=== PATIENT | female | born 1995 | race Caucasian/White ===

== ENCOUNTER 2016-06-05 01:39 | Emergency (ER) | payer MEDICAID ==
[~2016-06-05] VITALS: Ht 165.1 cm; Wt 80.0 kg
[~2016-06-05 01:39] MED LIST: ALBU1AER INH; DOXY100T PO; MMW SWISH-SWAL; PRED20 PO
[2016-06-05 01:41] VITALS: BP 143/82; PULSE 76; RESP 16; TEMP 97.7; O2SAT 99
[2016-06-05 02:46] VITALS: BP 122/77; PULSE 62; RESP 18; O2SAT 98
[2016-06-05] MEDS ORDERED: ZOFR8TAB PO (03:00)
[2016-06-05] MEDS ORDERED: SODIUM CHLOR 0.9% 1000 ML INJ 1,000 ML IV SCH (03:26)
--- NOTE | 2016-06-05 03:28 | PD ---
HPI . Abdominal pain Chief Complaint: Abdominal Pain Time Seen by Provider: 03:20 Travel History International Travel<30 days: No Contact w/Intl Traveler<30days: No Traveled to known affect area: No History of Present Illness HPI Patient presents with right lower quadrant abdominal pain. She states that she' s had the abdominal pain for about a week. It has waxed and waned. She describes cramping. It is associated with nausea. She denies known fever. She denies urinary tract symptoms. She denies any female organs symptoms such as abnormal bleeding, discharge or dyspareunia. PFSH Past Medical History Asthma: No Blood Disorders: No Anxiety: Yes (PT DENIES 12/26/2014) Depression: Yes (PT. DENIES 12/26/14) Heart Rhythm Problems: No Cancer: No Cardiovascular Problems: No High Cholesterol: No Chemotherapy: No Chest Pain: Yes Congestive Heart Failure: No COPD: No Diabetes: No Diminished Hearing: No Endocrine: No Gastrointestinal Disorders: Yes (C-DIFF: 2013, GASTROPARESIS) Genitourinary: No Immune Disorder: No Musculoskeletal: No Neurologic: No Psychiatric: Yes Reproductive: No Respiratory: No Immunizations Current: Yes Radiation Therapy: No Sleep Apnea: No Thyroid Disease: No Ulcer: Yes Tetanus Vaccination: < 5 Years Influenza Vaccination: No ?: Not LMP: 05/18/2016 : 1 Para: 1 Miscarriage: 1 Ovarian Cysts: Yes Past Surgical History Cholecystectomy: Yes (05/2015) Oral Surgery: Yes Other Surgery: Yes (NASAL) Social History Alcohol Use: No Tobacco Use: Yes Substance Use: No Allergies-Medications (Allergen,Severity, Reaction): Coded Allergies: Morphine (Unverified Allergy, Intermediate, RASH, 06/05/16) *MDRO Multi-Drug Resistant Organism (Verified Allergy, Unknown, 06/05/16) C.diff 10/2013 Reported Meds & Prescriptions Reported Meds & Active Scripts Active Reported Zofran (Ondansetron HCl) 8 Mg Tab 8 Mg PO DIRECTED PRN Review of Systems Except as stated in HPI: all other systems reviewed are Neg General / Constitutional: No: Fever, Chills Gastrointestinal: Positive: Nausea, Abdominal Pain, No: Vomiting, Diarrhea Genitourinary: No: Urgency, Frequency, Dysuria, Dyspareunia, Discharge, Dysmenorrhea, Vaginal Bleeding Physical Exam Narrative GENERAL: I found the patient lying prone on the stretcher SKIN: Warm and dry. HEAD: Atraumatic. Normocephalic. EYES: Pupils equal and round. ENT: No nasal bleeding or discharge. Mucous membranes pink and moist. NECK: Trachea midline. CARDIOVASCULAR: Regular rate and rhythm. Heart sounds are normal. RESPIRATORY: No accessory muscle use. Lungs are clear with full air movement throughout. GASTROINTESTINAL: Abdomen soft. Right lower quadrant tenderness. No right upper quadrant tenderness. Nondistended. MUSCULOSKELETAL: No obvious deformities. No edema. NEUROLOGICAL: Awake and alert. No obvious cranial nerve deficits. Motor grossly within normal limits. Normal speech. PSYCHIATRIC: Appropriate mood and affect; insight and judgment normal. Data Data Last Documented VS Vital Signs Date Time Temp Pulse Resp B/P Pulse Ox O2 Delivery O2 Flow Rate FiO2 06/05/16 02:46 62 18 122/77 98 Room Air 06/05/16 01:41 97.7 Orders Complete Blood Count With Diff (06/05/16 03:26) Comprehensive Metabolic Panel (06/05/16 03:26) Lipase (06/05/16 03:26) Urinalysis - C+S If Indicated (06/05/16 03:26) Ct Abd/Pel W Iv Contrast(Rout) (06/05/16 03:26) Iv Access Insert/Monitor (06/05/16 03:26) Ondansetron Inj (Zofran Inj) (06/05/16 03:30) Sodium Chlor 0.9% 1000 Ml Inj (Ns 1000 M (06/05/16 03:26) Sodium Chloride 0.9% Flush (Ns Flush) (06/05/16 03:30) Ed Urine Pregnancytest Poc (06/05/16 03:26) Labs Laboratory Tests Test 06/05/16 03:25 White Blood Count 11.4 TH/MM3 Red Blood Count 4.80 MIL/MM3 Hemoglobin 13.9 GM/DL Hematocrit 41.0 % Mean Corpuscular Volume 85.5 FL Mean Corpuscular Hemoglobin 29.0 PG Mean Corpuscular Hemoglobin 34.0 % Concent Red Cell Distribution Width 12.1 % Platelet Count 289 TH/MM3 Mean Platelet Volume 8.2 FL Neutrophils (%) (Auto) 60.6 % Lymphocytes (%) (Auto) 28.0 % Monocytes (%) (Auto) 8.2 % Eosinophils (%) (Auto) 2.5 % Basophils (%) (Auto) 0.7 % Neutrophils # (Auto) 6.9 TH/MM3 Lymphocytes # (Auto) 3.2 TH/MM3 Monocytes # (Auto) 0.9 TH/MM3 Eosinophils # (Auto) 0.3 TH/MM3 Basophils # (Auto) 0.1 TH/MM3 CBC Comment DIFF FINAL Differential Comment Urine Color YELLOW Urine Turbidity CLEAR Urine pH 6.0 Urine Specific [place] 1.022 Urine Protein NEG mg/dL Urine Glucose (UA) NEG mg/dL Urine Ketones NEG mg/dL Urine Occult Blood MOD Urine Nitrite NEG Urine Bilirubin NEG Urine Urobilinogen LESS THAN 2.0 MG/DL Urine Leukocyte Esterase NEG Urine RBC 84 /hpf Urine WBC 2 /hpf Urine Squamous Epithelial <1 /hpf Cells Urine Bacteria RARE /hpf Urine Mucus FEW /lpf Microscopic Urinalysis Comment CULT NOT INDICATED Sodium Level 142 MEQ/L Potassium Level 3.7 MEQ/L Chloride Level 108 MEQ/L Carbon Dioxide Level 27.4 MEQ/L Anion Gap 7 MEQ/L Blood Urea Nitrogen 8 MG/DL Creatinine 0.69 MG/DL Estimat Glomerular Filtration 105 ML/MIN Rate Random Glucose 116 MG/DL Calcium Level 9.1 MG/DL Total Bilirubin 0.2 MG/DL Aspartate Amino Transf 11 U/L (AST/SGOT) Alanine Aminotransferase 19 U/L (ALT/SGPT) Alkaline Phosphatase 72 U/L Total Protein 7.2 GM/DL Albumin 4.0 GM/DL Lipase 122 U/L [facility] Medical Decision Making Medical Screen Exam Complete: Yes Emergency Medical Condition: Yes Differential Diagnosis Differential diagnosis of abdominal pain includes but is not limited to gastritis, pancreatitis, hepatitis, gastroenteritis, gallbladder disease, constipation, urinary retention, UTI, peptic ulcer disease, diverticulitis or appendicitis Narrative Course Patient presents for evaluation of right lower quadrant abdominal pain. White count is 11.4. Chemistries unremarkable. UA had some blood but is nitrite and leukocyte esterase negative. Kyra Lazo MD Jun 05, 2016 03:28
[2016-06-05] MEDS ORDERED: SODIUM CHLORIDE 0.9% FLUSH 5 ML FLUSH IVF PRN (03:30)
[2016-06-05] MEDS ORDERED: ONDANSETRON HCL 4 MG/2 ML VIAL IVP ONE (03:30)
[2016-06-05 03:47] LABS: AUTOMATED NEUTROPHIL # 6.9 TH/MM3 (1.8-7.7); BASOPHIL # 0.1 TH/MM3 (0-0.2); BASOPHIL % 0.7 % (0.0-2.0); EOSINOPHIL # 0.3 TH/MM3 (0-0.4); EOSINOPHIL % 2.5 % (0.0-4.0); HEMO FLAGS DIFF FINAL; LYMPHOCYTE # 3.2 TH/MM3 (1.0-4.8); MEAN CELL VOLUME 85.5 FL (80.0-100.0); MONO % 8.2 % (0.0-8.0); NEUT % 60.6 % (16.0-70.0); PLATELET COUNT 289 TH/MM3 (150-450); RED CELL DISTRIBUTION WIDTH 12.1 % (11.6-17.2); WHITE BLOOD COUNT 11.4 TH/MM3 (4.0-11.0)
[2016-06-05 03:53] LABS: BACTERIA, URINE RARE /hpf; BLOOD, URINE MOD (NEG); COMMENT (UR) CULT NOT INDICATED; CULTURE IF INDICATED CULT NOT INDICATED; GLUCOSE,URINE NEG (NEG); KETONE, URINE NEG (NEG); MUCUS URINE FEW /lpf (OCC); NITRITE,URINE NEG (NEG); SQUAMOUS EPITHELIAL CELL URINE <1 /hpf (0-5); URINE COLOR YELLOW (YELLW/STRAW)
[2016-06-05 03:59] LABS: ALT (GPT) 19 U/L (10-53); ANION GAP 7 MEQ/L (5-15); AST (GOT) 11 U/L (15-37); BICARBONATE 27.4 MEQ/L (21.0-32.0); BLOOD UREA NITROGEN 8 MG/DL (7-18); CHLORIDE 108 MEQ/L (98-107); GLOMERULAR FILTRATION RATE 105 ML/MIN (>89); POTASSIUM 3.7 MEQ/L (3.5-5.1); SODIUM (NA) 142 MEQ/L (136-145)
[2016-06-05 04:02] LABS: ALKALINE PHOSPHATASE 72 U/L (45-117); TOTAL BILIRUBIN ADULT 0.2 MG/DL (0.2-1.0)
[2016-06-05] MEDS ORDERED: IOHEXOL 350 MG/ML 10 ML VIAL (for RAD DIAG) IV ONE (04:51)
[2016-06-05] MEDS ORDERED: MORPHINE SULFATE 4 MG/ML INJ IV PUSH ONE (05:00)
--- NOTE | 2016-06-05 06:16 | RADRPT ---
EXAM DATE/TIME: 06/05/2016 04:31 [place] COMPARISON: No previous studies available for comparison. INDICATIONS : Abdominal pain with nausea. IV CONTRAST: 80 cc Omnipaque 350 (iohexol) IV ORAL CONTRAST: No oral contrast ingested. RADIATION DOSE: 10.09 CTDIvol (mGy) MEDICAL HISTORY : ovarian cyst, gastroparesise, ulcer, c-diff SURGICAL HISTORY : Cholecystectomy. ENCOUNTER: Initial ACUITY: 1 day PAIN SCALE: 6/10 LOCATION: abdomen TECHNIQUE: Volumetric scanning of the abdomen and pelvis was performed. Using automated exposure control and ad justment of the mA and/or kV according to patient size, radiation dose was kept as low as reasonably achievable to obtain optimal diagnostic quality images. FINDINGS: The study is mildly degraded by patient motion. LOWER LUNGS: The visualized lower lungs are clear. LIVER: Homogeneous density without lesion. There is no dilation of the biliary tree. No calcified gallston es. SPLEEN: Normal size without lesion. PANCREAS: Within normal limits. KIDNEYS: Normal in size and shape. There is no mass, stone or hydronephrosis. ADRENAL GLANDS: Within normal limits. VASCULAR: There is no aortic aneurysm. BOWEL/MESENTERY: The stomach, small bowel, and colon demonstrate no acute abnormality. There is no free intraperitone al air or fluid. ABDOMINAL WALL: Within normal limits. RETROPERITONEUM: There is no lymphadenopathy. BLADDER: No wall thickening or mass. REPRODUCTIVE: Within normal limits. INGUINAL: There is no lymphadenopathy or hernia. MUSCULOSKELETAL: Within normal limits for patient age. CONCLUSION: No acute CT findings in the abdomen or pelvis. Von Duffy MD on June 05, 2016 at 6:13 Board Certified Radiologist. This report was verified electronically.
[2016-06-05] MEDS ORDERED: BENT20TA PO (06:24)
[2016-06-05 06:41] VITALS: BP 124/72
== END 2016-06-05 06:43 | disposition home or self-care (01) ==
LOC: NEPC 01:39
DX: R10.31 Right lower quadrant pain (principal); R11.0 Nausea; Z72.0 Tobacco use; Z87.19 Personal history of other diseases of the digestive system; Z86.59 Personal history of other mental and behavioral disorders
CPT/HCPCS: 74177; 80053; 81001; 83690; 84703; 85025; 96374; 96375; 99284; J2270; J2405; J7030; Q9967

== ENCOUNTER 2017-05-07 07:42 | Emergency (ER) | payer MEDICAID ==
[~2017-05-07] VITALS: Ht 165.1 cm; Wt 84.1 kg
[~2017-05-07 07:42] MED LIST changes: -ALBU1AER INH; +BENT20TA PO; -DOXY100T PO; -MMW SWISH-SWAL; -PRED20 PO; +ZOFR8TAB PO
[2017-05-07 07:50] VITALS: BP 137/82; PULSE 59; RESP 15; TEMP 98; O2SAT 99
[2017-05-07] MEDS ORDERED: SODIUM CHLOR 0.9% 1000 ML INJ 1,000 ML IV SCH (07:50)
[2017-05-07] MEDS ORDERED: FAMOTIDINE 20 MG/2 ML VIAL IV PUSH ONE (08:00)
[2017-05-07] MEDS ORDERED: diphenhydrAMINE HCL 50 MG/ML VIAL IV PUSH ONE (08:00)
[2017-05-07] MEDS ORDERED: SODIUM CHLORIDE 0.9% FLUSH 10 ML FLUSH IV FLUSH PRN (08:00)
[2017-05-07] MEDS ORDERED: METOCLOPRAMIDE HCL 10 MG/2 ML VIAL IV PUSH ONE (08:00)
--- NOTE | 2017-05-07 08:01 | PD ---
HPI Chief Complaint: GI symptoms Time Seen by Provider: 07:50 Travel History International Travel<30 days: No Contact w/Intl Traveler<30days: No Traveled to known affect area: No History of Present Illness HPI 22-year-old female complains of abdominal pain nausea vomiting diarrhea. Patient states that the symptoms started this morning. Patient states the pain cramping pain diffuse over the abdomen. Patient denies any pain radiation. Patient denies any blood or mucus in the stool. Patient denies any headache. Patient denies any chest pain or shortness of breath. Patient denies any dysuria or frequency. Patient denies any vaginal discharge or bleeding. Patient denies any fever chills. PFSH Past Medical History Asthma: No Blood Disorders: No Anxiety: Yes (PT DENIES 12/26/2014) Depression: Yes (PT. DENIES 12/26/14) Heart Rhythm Problems: No Cancer: No Cardiovascular Problems: No High Cholesterol: No Chemotherapy: No Chest Pain: Yes Congestive Heart Failure: No COPD: No Diabetes: No Diminished Hearing: No Endocrine: No Gastrointestinal Disorders: Yes (C-DIFF: 2014, GASTROPARESIS) Genitourinary: No Immune Disorder: No Musculoskeletal: No Neurologic: No Psychiatric: Yes Reproductive: No Respiratory: No Immunizations Current: Yes Radiation Therapy: No Sleep Apnea: No Thyroid Disease: No Ulcer: Yes : 1 Para: 1 Miscarriage: 1 Ovarian Cysts: Yes Past Surgical History Cholecystectomy: Yes (05/2015) Oral Surgery: Yes Other Surgery: Yes (NASAL) Social History Alcohol Use: No Tobacco Use: Yes Substance Use: No Allergies-Medications (Allergen,Severity, Reaction): Coded Allergies: No Known Allergies (Unverified , 05/07/17) Reported Meds & Prescriptions Reported Meds & Active Scripts Active No Active Prescriptions or Reported Medications Review of Systems General / Constitutional: No: Fever Eyes: No: Visual changes HENT: No: Headaches Cardiovascular: No: Chest Pain or Discomfort Respiratory: No: Shortness of Breath Gastrointestinal: Positive: Nausea, Vomiting, Diarrhea, Abdominal Pain Genitourinary: No: Dysuria Musculoskeletal: No: Pain Skin: No Rash Neurologic: No: Weakness Psychiatric: No: Depression Endocrine: No: Polydipsia Hematologic/Lymphatic: No: Easy Bruising Physical Exam Narrative GENERAL: Well-nourished, well-developed patient. SKIN: Focused skin assessment warm/dry. HEAD: Normocephalic. EYES: No scleral icterus. No injection or drainage. NECK: Supple, trachea midline. No JVD or lymphadenopathy. CARDIOVASCULAR: Regular rate and rhythm without murmurs, gallops, or rubs. RESPIRATORY: Breath sounds equal bilaterally. No accessory muscle use. GASTROINTESTINAL: Abdomen soft, nondistended. Patient has mild diffuse tenderness over the abdomen. No rebound tenderness. No mass. MUSCULOSKELETAL: No cyanosis, or edema. BACK: Nontender without obvious deformity. No CVA tenderness. Neurologic exam normal. Data Data Last Documented VS Vital Signs Date Time Temp Pulse Resp B/P (MAP) Pulse Ox O2 Delivery O2 Flow Rate FiO2 05/07/17 08:06 98.0 58 15 137/82 (100) 99 Room Air Orders Orders Beta Hcg (Quant/Titer) (05/07/17 07:50) Complete Blood Count With Diff (05/07/17 07:50) Comprehensive Metabolic Panel (05/07/17 07:50) Lipase (05/07/17 07:50) Urinalysis - C+S If Indicated (05/07/17 07:50) Iv Access Insert/Monitor (05/07/17 07:50) Ecg Monitoring (05/07/17 07:50) Oximetry (05/07/17 07:50) Sodium Chlor 0.9% 1000 Ml Inj (Ns 1000 M (05/07/17 07:50) Sodium Chloride 0.9% Flush (Ns Flush) (05/07/17 08:00) Famotidine Inj (Pepcid Inj) (05/07/17 08:00) Ed Urine Pregnancytest Poc (05/07/17 07:50) Metoclopramide Inj (Reglan Inj) (05/07/17 08:00) Diphenhydramine Inj (Benadryl Inj) (05/07/17 08:00) MDM Medical Decision Making Medical Screen Exam Complete: Yes Emergency Medical Condition: Yes Differential Diagnosis Differential diagnosis including gastroenteritis, bowel obstruction, cholecystitis, pancreatitis, colitis, UTI, pyelonephritis, nephrolithiasis. Narrative Course 22-year-old female with abdominal pain, nausea vomiting diarrhea. Normal saline solution 1 L IV bolus. Pepcid 20 mg IV. Patient was given Zofran 4 mg IV by EMS. Reglan 10 mg IV. Benadryl 25 mg IV. 8:29 AM. Patient wants to leave. Patient does not want any more treatment. Patient will sign AMA. Diagnosis Primary Impression: Gastroenteritis Patient Instructions: General Instructions Additional Instructions: Patient's leaving AMA. Med/Other Pt SpecificInfo: No Meds Exist/No RX given Scripts No Active Prescriptions or Reported Meds Disposition: 07 AGAINST MEDICAL ADVICE Condition: David Gutiérrez MD May 07, 2017 08:01
[2017-05-07 08:06] VITALS: BP 137/82; PULSE 58; RESP 15; TEMP 98; O2SAT 99
== END 2017-05-07 08:46 | disposition left against medical advice (07) ==
LOC: NEPC 07:42
DX: K52.9 Noninfective gastroenteritis and colitis, unspecified (principal); F41.9 Anxiety disorder, unspecified; Z87.19 Personal history of other diseases of the digestive system; Z72.0 Tobacco use
CPT/HCPCS: 96374; 96375; 99283; J1200; J2765; J7030